=== PATIENT | male | born 1980 | race Caucasian/White ===

== ENCOUNTER 2017-09-29 10:30 | Emergency (ER) | payer SELFPAY ==
[~2017-09-29] VITALS: Ht 180.3 cm; Wt 93.0 kg
[2017-09-29 10:52] LABS: ABSOLUTE BASOPHIL COUNT 0 /CUMM (0.0-0.2); ABSOLUTE EOSINOPHIL COUNT 0.5 /CUMM (0.0-0.7); ABSOLUTE GRANULOCYTE CT 7.7 /CUMM (1.4-6.5); ABSOLUTE LYMPH COUNT 1.7 /CUMM (1.2-3.4); ABSOLUTE MONOCYTE COUNT 0.7 /CUMM (0.10-0.60); BASOPHIL % 0.4 % (0.0-2.0); EOSINOPHIL % 4.3 % (0-5); GRANULOCYTE % 72.7 % (42.2-75.2); HEMATOCRIT 47.3 % (42-52); MEAN CORPUSCULAR HGB 29.2 PG (27.0-31.0); MEAN CORPUSCULAR HGB CONC 34.4 G/DL (33.0-37.0); MEAN CORPUSCULAR VOLUME 84.9 FL (80.0-94.0); MEAN PLATELET VOLUME 9.1 FL (7.4-10.4); PLATELET COUNT 199 /CUMM (130-400); RED BLOOD CELL CT 5.57 /CUMM (4.70-6.10); WHITE BLOOD CELL COUNT 10.6 /CUMM (4.8-10.8)
--- NOTE | 2017-09-29 13:11 | ED CARDIAC/CP/PALPITATIONS ---
History of Present Illness General Chief Complaint: General Adult Stated Complaint: LIGHTHEADED Source: patient, family Exam Limitations: no limitations Vital Signs & Intake/Output Vital Signs & Intake/Output Vital Signs Date Time Temp Pulse Resp B/P B/P Pulse O2 O2 Flow FiO2 Mean Ox Delivery Rate 09/29 1255 Room Air 09/29 1254 98.1 62 16 157/76 99 Room Air 09/29 1032 98.6 82 18 136/88 99 Room Air Allergies Coded Allergies: NO KNOWN ALLERGIES (05/10/13) Triage Note: PT STATES THAT LAST PM HE STARTED TO FEEL LIGHT HEADED AND HAD A MID STERNAL CP THAT LASTED ABOUT 10 MINS, DENIES PAIN AND SOB AT THIS TIME. COMPLAINS OF JUST FEELING LIGHT HEADED Triage Nurses Notes Reviewed? yes Onset: Abrupt Duration: minute(s): Timing: single episode today Quality/Severity: mild Location: central Activities at Onset: none Prior Chest Pain/Card Workup: no prior chest pain, no prior cardiac workup HPI: PATIENT IS A 37 Y/O MALE, NO PMH, PRESENTING 12 HOURS S/P PALPITATIONS AND CHEST TIGHTNESS EARLY THIS A.M. PATIENT WAS AT REST ON THE COUCH AT ONSET OF SYMPTOMS. PATIENT DESCRIBES PALPITATIONS, CHEST TIGHTNESS, NAUSEA, DIAPHORESIS, AND DIZZINESS DURING THE EPISODE WHICH LASTED 10 MINUTES. AFTER THE EPISODE PATIENT FELT FATIGUED AND WAS ABLE TO SLEEP COMFORTABLY THROUGHOUT THE REST OF THE NIGHT. PATIENT CURRENTLY DENIES SYMPTOMS AND HAS NOT EXPERIENCED THE SYMPTOMS SINCE THE EVENT THIS A.M. HE DOES NOT TAKE ANY MEDICATIONS ON A REGULAR BASIS AND DENIES HAVING A PRIMARY CARE PROVIDER TO FOLLOW-UP WITH. PATIENT DENIES HEADACHES, FEVER, CHILLS, SHORTNESS OF BREATH, ABDOMINAL PAIN, DYSURIA, DIARRHEA , CONSTIPATION, AND RECENT ILLNESS. (Rolan Loving) Past History Travel History Traveled to [place] past 21 day No Medical History Any Pertinent Medical History? none Neurological: NONE EENT: NONE Cardiovascular: NONE Respiratory: NONE Gastrointestinal: NONE Hepatic: NONE Renal: NONE Musculoskeletal: NONE Psychiatric: NONE Endocrine: NONE Blood Disorders: NONE Cancer(s): NONE MEDIA ACCOUNT EXECUTIVE/Reproductive: NONE Surgical History Surgical History: none Psychosocial History What is your primary language Algerian Tobacco Use: Never used ETOH Use: denies use Illicit Drug Use: denies illicit drug use Family History Comment: GRANDFATHER: MULTIPLE [place] BEGINNING AT 50 Y/O Hx Contributory? Yes (Rolan Loving) Review of Systems Review of Systems Constitutional: Reports: see HPI. EENTM: Reports: no symptoms. Respiratory: Reports: no symptoms. Cardiovascular: Reports: see HPI. GI: Reports: nausea. Genitourinary: Reports: no symptoms. Musculoskeletal: Reports: no symptoms. Skin: Reports: no symptoms. Neurological/Psychological: Reports: no symptoms. Hematologic/Endocrine: Reports: no symptoms. Immunologic/Allergic: Reports: no symptoms. All Other Systems: Reviewed and Negative (Rolan Loving) Physical Exam Physical Exam General Appearance: well developed/nourished, no apparent distress, alert, awake , comfortable Head: atraumatic, normal appearance Eyes: Bilateral: normal appearance, EOMI. Ears, Nose, Throat: normal ENT inspection Neck: normal inspection, supple, full range of motion Respiratory: normal breath sounds, chest non-tender, no respiratory distress, lungs clear Cardiovascular: regular rate/rhythm Peripheral Pulses: 2+ radial (R), 2+ radial (L), 2+ tibialis posterior (R), 2+ tibialis posterior ( L), 2+ dorsalis pedis (R), 2+ dorsalis pedis (L) Gastrointestinal: soft, non-tender, no organomegaly Back: decreased range of motion Neurologic/Psych: awake, alert, oriented x 3 Skin: intact, normal color, warm/dry Core Measures ACS in differential dx? Yes CVA/TIA Diagnosis No Sepsis Present: No Sepsis Focused Exam Completed? No All Positive = PERC Ruled Out: Positive: age < 50 years, heart rate < 100 bpm, O2 sat > 94%, no hemoptysis, no hormone use, no prior DVT or PE, no unilateral leg swellin, no surgery/trauma w/ in 4w. (Rolan Loving) Progress Differential Diagnosis: AMI, hyperthyroid, myocarditis, pericarditis, pneumonia, pneumothorax, pulmonary embolism, PUD/GERD, PVCs/PACs, V-fib/V-Tach, WPW syndrome Plan of Care: Orders Procedure Date/time Status TROPONIN LEVEL 09/29 1345 Complete EKG 09/29 1345 Active Add-on Test (ER Only) 09/29 1312 Active THYROID STIMULATING HORMONE 09/29 1043 Complete TROPONIN LEVEL 09/29 1034 Complete COMPREHENSIVE METABOLIC PANEL 09/29 1034 Complete CBC WITHOUT DIFFERENTIAL 09/29 1034 Complete EKG 09/29 1034 Active Laboratory Tests 09/29/17 1340: Troponin I < 0.01 09/29/17 1043: Anion Gap 11, Estimated GFR > 60, BUN/Creatinine Ratio 22.5, Glucose 97, Calcium 9.5, Total Bilirubin 0.4, AST 22, ALT 42, Alkaline Phosphatase 63, Troponin I < 0.01, Total Protein 7.2, Albumin 4.3, Globulin 2.9, Albumin/Globulin Ratio 1.5, TSH 1.860, CBC w Diff NO MAN DIFF REQ, RBC 5.57, MCV 84.9, MCH 29.2, MCHC 34.4, RDW 13.0, MPV 9.1, Gran % 72.7, Lymphocytes % 16.0 L, Monocytes % 6.6, Eosinophils % 4.3, Basophils % 0.4, Absolute Granulocytes 7.7 H, Absolute Lymphocytes 1.7, Absolute Monocytes 0.7 H, Absolute Eosinophils 0.5, Absolute Basophils 0 Diagnostic Imaging: Viewed by Me: Radiology Read. Discussed w/RAD: Radiology Read. Radiology Impression: PATIENT: KAREEN AL PRESENT AGE: 37 PATIENT ACCOUNT NO: [id number] : 80 LOCATION: [facility] ORDERING PHYSICIAN: Rolan VEGA SERVICE DATE: 09/29/17 EXAM TYPE : RAD - XRY-CHEST XRAY, TWO VIEWS EXAMINATION: XR CHEST CLINICAL INFORMATION: Chest tightness last night COMPARISON: None TECHNIQUE: 2 views of the chest were obtained. FINDINGS: The lungs are well expanded. There is no focal consolidation , edema, or effusion. No pneumothorax. The cardiomediastinal silhouette is within normal limits. No acute osseous abnormality. IMPRESSION: No acute pulmonary findings. DICTATED BY: Eyad Kingsley MD DATE/TIME DICTATED:1350 JEWELRY MOLD MAKER:TENISHA DATE/TIME TRANSCRIBED:09/29/171350 CONFIDENTIAL, DO NOT COPY WITHOUT APPROPRIATE AUTHORIZATION. <Electronically signed in Other Vendor System> SIGNED BY: Eyad Kingsley MD 09/29/17 8908 Initial ED EKG: normal sinus rhythm, rate (72), borderline t wave abnormalities Repeat EKG: unchanged Comments: 09/29/2017 2:49:08 PM Patient clinically looks well. Patient is in no apparent distress. Patient is nontoxic-appearing. Asymptomatic here in the emergency room. Case discussed with Dr. nguyen. Follow-up with cardiology as outpatient. (Rolan Loving) Departure Departure Disposition: HOME OR SELF CARE Condition: Stable Clinical Impression Primary Impression: Heart palpitations Secondary Impressions: Chest tightness Referrals: Patient Has No Primary Care Dr (PCP/Family) Lilo VALENZUELA,Kirti Damon Additional Instructions: Follow-up with primary care doctor. Follow-up with web specialist provided. Return if any other concerns worsening symptoms. Please go over all results of today's visit with your primary care doctor. Contact your primary care doctor to let them know you were here in the emergency room. There may be nonspecific findings which may not be related to your visit today here in the emergency room but may require further evaluation and chronic monitoring by your primary care doctor. If you had a laceration today the chance of foreign body always remains. You should follow-up with your primary care doctor for recheck in 3-5 days for a wound check. If you had an x-ray done there is a chance that a fracture could have been missed on initial read and you should follow-up with your primary care doctor for repeat x-rays if symptoms persist. If your blood pressure was elevated here in the emergency room please have rechecked by [facility] primary care doctor within the next 48. If you were prescribed a narcotic here in the emergency room or any type of controlled substances you're not allowed to drive while taking this medication or operate any type of heavy machinery. Narcotics can make you feel lightheaded dizziness nausea and can cause constipation. You may need to pickle water pump operator a stool softener. Thank you for choosing [facility] emergency room. Please return to the emergency room immediately if you have any other concerns worsening of symptoms. Departure Forms: Customer Survey General Discharge Information (Rolan Loving) PA/HEALTH PLAN ADVISOR Co-Sign Statement Statement: ED Attending supervision documentation- x I saw and evaluated the patient. I have also reviewed all the pertinent lab results and diagnostic results. I agree with the findings and the plan of care as documented in the PA's/HEALTH PLAN ADVISOR's documentation. [] I have reviewed the ED Record and agree with the PA's/HEALTH PLAN ADVISOR's documentation. [] Additions or exceptions (if any) to the PAs/HEALTH PLAN ADVISOR's note and plan are summarized below: [] (Fazal VALENZUELA,Kayden) Critical Care Note Critical Care Note Critical Care Time: non-applicable (Jean VEGA,Rolan)
--- NOTE | 2017-09-29 13:54 | RADIOLOGY REPORT ---
EXAMINATION: XR CHEST CLINICAL INFORMATION: Chest tightness last night COMPARISON: None TECHNIQUE: 2 views of the chest were obtained. FINDINGS: The lungs are well expanded. There is no focal consolidation, edema, or effusion. No pneumothorax. The cardiomediastinal silhouette is within normal limits. No acute osseous abnormality. IMPRESSION: No acute pulmonary findings.
[2017-09-29 14:40] VITALS: BP 137/68
== END 2017-09-29 14:46 ==
LOC: ERH 10:30
PROVIDERS: Emergency Medicine
DX: R00.2 Palpitations (principal); R07.89 Other chest pain
CPT/HCPCS: 71046; 93005; 93010